=== PATIENT | female | born 1950 | race African-American/Black ===

== ENCOUNTER → 2016-09-13 | Outpatient (CLI) | payer MEDICARE ==
--- NOTE | 2016-09-13 17:23 | RADRPT ---
PROCEDURE: Left knee radiographs. CLINICAL INDICATION: Left knee pain. TECHNIQUE: Three views. Weight bearing. Frontal, lateral, and patellar view. COMPARISON: No prior studies are available for comparison. FINDINGS: There is no fracture or dislocation. The soft tissues are normal. Articular surfaces are intact. There is no lytic or blastic lesion. There is no radiopaque foreign body. IMPRESSION: 1. Normal images of the left knee. RPTAT: QQ .Glenroy Barry MD, MD Date Time Electronically viewed and signed by .Glenroy Barry MD, MD on 09/13/2016 17:22 .R/
--- NOTE | 2016-09-13 19:39 | HKNOTE ---
DATE OF SERVICE: 09/13/2016 MAIN COMPLAINT: Pain, swelling, locking and instability of the left knee. HISTORY OF MAIN COMPLAINT: The patient is a 66-year-old overweight female whose left knee was "fine " until of this past year. She does admit that there had been some slight pain in the knee for about a year, but she felt that this "was just related to getting older." On , she woke up with severe pain in her knee. She was not able to straighten the k nee or bend the knee. She has continued to have these symptoms since then. She was seen at [facility]. X-rays were taken. She was told she had some mild arthritis in the kn ee. She was given a prescription for tramadol and prednisone by mouth. She also bought a rolling w alker. PRESENT COMPLAINTS: The pain has minimally improved since she was seen at the [facility] a nd still remains severe. Pain is aggravated by walking, weightbearing and stair climbing. She some times get rest pain or night pain. She takes Advil, Tylenol and Shirley for the pain. Nothing seems to help very much. She is not able to extend the knee fully. She is not able to bear much weight o n the leg, and it is difficult for her to say whether it feels unstable. On a level surface, she ca n hardly walk a step or two. The patient limps all the time. It is impossible for her to put on her shoe or sock or clip her toe nails on the left side. PAST ORTHOPEDIC HISTORY: PREVIOUS ORTHOPEDIC OPERATIONS: None. PRIOR CORTISONE INTAKE: None. ALCOHOL INTAKE: None (wine on occasion). OTHER JOINT PROBLEMS: None. BLOOD TESTS FOR ARTHRITIS: None. PREVIOUS INJURIES TO HIPS OR KNEES: None. WORK STATUS: The patient is a retired caregiver. PAST MEDICAL HISTORY: 1. Thyroid goiter. 2. Obesity. 3. Recent severe depression. PAST SURGICAL HISTORY: Negative. ALLERGIES: "CODEINE MAKES MY STOMACH HURT." MEDICATIONS: 1. Vitamin D. 2. Essential 1-a-day vitamins. 3. Advil. 4. Vicodin (obtained from a friend). FAMILY HISTORY: Father at 92 of cancer and diabetes. Mother at 63 of heart problems. SYSTEMS REVIEW: Gait disturbance, otherwise entirely negative. HABITS: The patient does not smoke or drink alcoholic beverages. PHYSICAL EXAMINATION: GENERAL: The patient is a markedly overweight but otherwise fit-looking 66-year-old female. She co mes in with her son. VITAL SIGNS: Height 5 feet 3 inches. Weight 250 pounds. Blood pressure 145/65, temperature 98.1. Physical examination is markedly limited. The patient is not able to get out of her wheelchair, and I had to examine her sitting in the wheelchair. LEFT KNEE: 2+ effusion. Extension lacks 70 degrees, flexion is to 110 degrees, extremely severe pa in on attempting to exceed these limits. IMAGING: Plain x-rays of the left knee obtained today show moderate narrowing of the medial joint s pace. Otherwise negative. DIAGNOSES: 1. Mild degenerative osteoarthritis of the left knee. 2. Probable internal derangement of the left knee. 3. Hypothyroidism. 4. Depression. 5. Obesity. 6. ALLERGIC TO CODEINE. MANAGEMENT: Note that under sterile conditions, the patient given 10 mL of local anesthetic into he r left knee. I was still totally unable to get her knee to move beyond the above range of motion, i ndicated that the knee is definitely locked by some mechanical means, most likely a torn meniscus. DIAGNOSES: 1. Mild degenerative osteoarthritis, left knee. 2. Probable torn meniscus, left knee. 3. Hypothyroidism. 4. Depression. 5. Obesity. 6. ALLERGIC TO CODEINE. MANAGEMENT: The patient being sent for an MRI scan of the left knee. She is advised that almost ce rtainly she has a torn meniscus where she would need to have arthroscopic surgery. The procedure an d some of the major possible complications were discussed with her and her son in a fair amount of d etail. Postoperative course was discussed with them. The patient will be seen again after she gets the MRI scan. Dictated By: FRANCISCO KILPATRICK/SANDRITA Conf#: [id number] DID#: [id number]
== END | disposition home or self-care (01) ==
LOC: HKI 15:50
DX: M17.12 Unilateral primary osteoarthritis, left knee (principal); E03.9 Hypothyroidism, unspecified; F32.9 Major depressive disorder, single episode, unspecified; E66.9 Obesity, unspecified; Z88.6 Allergy status to analgesic agent
CPT/HCPCS: 20610; 73562; G0463